=== PATIENT | male | born 1970 | race Caucasian/White ===

== ENCOUNTER 2023-07-17 04:29 | Inpatient (IN) | payer OTHER ==
[2023-07-17] MEDS ORDERED: ALBUTEROL SO4 2.5/IPRATROPIUM 0.5 INH SOL 3 ML VIAL.NEB. NEB ONE ×2 (04:47→05:13)
[2023-07-17] MEDS: ALBUTEROL SO4 2.5/IPRATROPIUM 0.5 INH SOL 3 ML VIAL.NEB. NEB SCH ×3 (04:50→09:15)
[2023-07-17] MEDS ORDERED: ACETAMINOPHEN INJECTION 100 ML IVPB ONE (04:51)
[2023-07-17] MEDS ORDERED: methylPREDNISolone NA SUCC 125 MG/2 ML VIAL ONE (04:52)
[2023-07-17] MEDS ORDERED: MAGNESIUM SULFATE IN WATER 2 GM/50 ML IVPB IVPB ONE (04:52)
[2023-07-17] MEDS: methylPREDNISolone NA SUCC 125 MG/2 ML VIAL IVPUSH ONE (05:14)
[2023-07-17] MEDS: ACETAMINOPHEN 1000 MG/100 ML BAG IVPB ONE (05:14)
[2023-07-17] MEDS: SODIUM CHLORIDE 0.9% 500 ML INFUS.BAG IV ONE (05:14)
[2023-07-17 05:22] LABS: HEMATOCRIT 45.7 % (35.4-49); HEMOGLOBIN 15.5 GM/dL (11.7-16.9); LYMPH % 22.6 % (8-40); MCHC 33.8 g/dl (32.0-35.9); MEAN CELL VOLUME 88.8 fl (80-96); MEAN PLT VOLUME 9.7 fl (7.5-11.1); MONO % 10.5 % (3.8-10.2); NEUT % 65.9 % (42.8-82.8); PLATELET COUNT 170 10^3/uL (134-434); RBC 5.15 M/mm3 (4.00-5.60); RDW 14.3 % (11.9-15.9); WHITE BLOOD COUNT 7.8 K/mm3 (4.0-10.0)
[2023-07-17] MEDS: MAGNESIUM SULF 50% (8.12 MEQ/2 ML-1 GM VIAL) IVPB ONE (05:29)
[2023-07-17 05:34] LABS: INR 1.24 (0.83-1.09); PROTHROMBIN TIME (PATIENT) 14.4 SEC (9.7-13.0)
[2023-07-17 05:36] LABS: POTASSIUM 4.3 mmol/L (3.5-5.1)
[2023-07-17 05:37] LABS: ACTIVATED PTT 33.5 SECONDS (25.2-36.5)
[2023-07-17 05:38] LABS: CALCIUM 8.7 mg/dL (8.5-10.1)
[2023-07-17 05:39] LABS: ALBUMIN 3.9 g/dl (3.4-5.0); BLOOD UREA NITROGEN 13.8 mg/dL (7-18); MAGNESIUM 1.9 mg/dL (1.8-2.4)
[2023-07-17 05:42] LABS: CREATININE 1.3 mg/dL (0.55-1.3)
[2023-07-17 05:44] LABS: BILIRUBIN,TOTAL 0.3 mg/dL (0.2-1)
[2023-07-17] MEDS ORDERED: OSELTAMIVIR PHOSPHATE 75 MG CAPSULE ONE (06:26)
[2023-07-17] MEDS: OSELTAMIVIR PHOSPHATE 75 MG CAPSULE PO ONE (06:29)
[2023-07-17] MEDS: PANTOPRAZOLE 40 MG TABLET PO SCH (11:10)
[2023-07-17] MEDS: methylPREDNISolone NA SUCC 40 MG/1 ML VIAL IVPUSH SCH (11:10)
[2023-07-17] MEDS: ENOXAPARIN NA (PORCINE) 40 MG/0.4 ML DISP.SYRIN SQ SCH (11:10)
[2023-07-17] MEDS: ALBUTEROL SO4 HFA INHALER IH PRN (13:17)
[2023-07-17] MEDS: guaiFENesin/D-METHORPHAN HB 10 ML UNIT-DOSE CUPS PO PRN (15:03)
[2023-07-17] MEDS: ACETAMINOPHEN 325 MG TABLET (FP) PO PRN (19:07)
[2023-07-17] MEDS: MONTELUKAST NA 10 MG TABLET PO SCH (21:26)
[2023-07-17] MEDS: OSELTAMIVIR PHOSPHATE 75 MG CAPSULE PO SCH (21:26)
[2023-07-17 22:47] VITALS: RESP 18
[2023-07-18 06:51] LABS: BASO % 0.2 % (0-2.0); HEMATOCRIT 42.2 % (35.4-49); HEMOGLOBIN 14.4 GM/dL (11.7-16.9); LYMPH % 33.3 % (8-40); MCH 30.3 pg (25.7-33.7); MEAN PLT VOLUME 9.8 fl (7.5-11.1); NEUT % 56.5 % (42.8-82.8); PLATELET COUNT 172 10^3/uL (134-434); RBC 4.74 M/mm3 (4.00-5.60); WHITE BLOOD COUNT 9.9 K/mm3 (4.0-10.0)
[2023-07-18 07:01] LABS: POTASSIUM 4.1 mmol/L (3.5-5.1)
[2023-07-18 07:03] LABS: CALCIUM 7.9 mg/dL (8.5-10.1)
[2023-07-18 07:04] LABS: MAGNESIUM 2.4 mg/dL (1.8-2.4)
[2023-07-18 07:06] LABS: ALBUMIN 3.6 g/dl (3.4-5.0); BLOOD UREA NITROGEN 15.1 mg/dL (7-18)
[2023-07-18 07:07] LABS: PHOSPHOROUS 2.3 mg/dL (2.5-4.9)
[2023-07-18 07:08] LABS: BILIRUBIN,TOTAL 0.4 mg/dL (0.2-1); TOT PROT 7.2 g/dl (6.4-8.2)
[2023-07-18] MEDS: CALCIUM (OYSTER SHELL) 500 MG TABLET (FP) PO SCH (10:16)
[2023-07-18] MEDS: NICOTINE 7 MG/24 HOURS TOPICAL PATCH TD SCH (10:16)
[2023-07-18 13:53] VITALS: TEMP 97.7
[2023-07-18 14:49] VITALS: BMI 30.9
[2023-07-18 16:26] VITALS: BP 131/90; PULSE 88
== END 2023-07-18 16:50 | disposition home or self-care (01) | DRG 113 ==
LOC: JER 04:29 → JERBED 06:20 → J7W 08:59 → OBSVTOIN 11:33
PROVIDERS: ADMIT Internal Medicine; ATTEND Nurse Practitioner Acute Care
DX: J11.1 Influenza due to unidentified influenza virus with other respiratory manifestations (principal); J45.901 Unspecified asthma with (acute) exacerbation; R00.0 Tachycardia, unspecified; R06.02 Shortness of breath; F17.210 Nicotine dependence, cigarettes, uncomplicated; K21.9 Gastro-esophageal reflux disease without esophagitis; R09.02 Hypoxemia
CPT/HCPCS: 0241U-QW; 36415; 71045-TC-FY; 80053; 83735; 83880; 84100; 84484; 85025; 85610; 85730; 93005; 93010; 94640; 99285-25; G0378; J0131